=== PATIENT | male | born 1950 | race Caucasian/White ===

== ENCOUNTER 2020-06-22 10:48 | Outpatient (REF) | payer MEDICARE, OTHER, SELFPAY ==
[2020-06-22 13:28] LABS: Alanine Aminotransferase 30 U/L (0-40); Albumin Level 4.4 g/dL (3.5-5.0); Alkaline Phosphatase 42 U/L (39-117); Anion Gap 10 (12-20); Aspartate Amino Transferase 48 U/L (5-37); Bilirubin Total 0.7 mg/dL (0.0-1.0); Blood Urea Nitrogen 19 mg/dL (9-16); Calcium 9.6 mg/dL (8.4-10.2); Carbon Dioxide 31 mmol/L (22-29); Chloride 102 mmol/L (96-108); Cholesterol 188 mg/dL; Estimated Glomerular Filt Rate > 60; Glucose Fasting 84 mg/dL (60-99); HDL Cholesterol 51 mg/dL; LDL Cholesterol Calculated 86 mg/dl; Potassium 4.8 mmol/l (3.3-5.1); Sodium 138 mmol/L (135-145); Total Protein 7.3 g/dL (6.5-8.0); Triglycerides 257 mg/dL
== END 2020-06-22 10:49 | disposition home or self-care (01) ==
LOC: HO.MANLDS 10:48
PROVIDERS: PCP Physician Assistant; Visit Provider Physician Assistant
DX: E78.5 Hyperlipidemia, unspecified (principal)
CPT/HCPCS: 80053; 80061

== ENCOUNTER 2021-06-25 09:19 | Outpatient (REF) | payer MEDICARE, OTHER, SELFPAY ==
[2021-06-25 11:08] LABS: MANUAL DIFF FLAG NO
[2021-06-25 11:12] LABS: Basophils Percent Auto 0.5 % (0-2); Eosinophils Absolute Auto 0.2 X10*3/uL (0.0-0.4); Eosinophils Percent Auto 2.8 % (0-4); Hematocrit 41.1 % (42-52); Hemoglobin 13.5 g/dl (14.0-18.0); Imm Gran Abs Auto 0.01 X10*3/uL (0.00-0.03); Imm Gran Pct Auto 0.2 % (0.0-0.4); Lymphocytes Absolute Auto 1.7 X10*3/uL (1.2-4.9); Lymphocytes Percent Auto 29.8 % (20-40); Mean Corpuscular HGB Conc 32.8 g/dl (31.0-36.0); Mean Corpuscular Hemoglobin 28.7 pg (27.0-33.0); Mean Corpuscular Volume 87.3 fL (80-98); Monocytes Absolute Auto 0.5 X10*3/uL (0.1-1.2); Monocytes Percent Auto 8.8 % (2-11); Neutrophils Absolute Auto 3.4 X10*3/uL (2.0-8.3); Neutrophils Percent Auto 57.9 % (45-73); Platelet Count 279 X10*3/uL (160-400); Red Blood Count 4.71 X10*6/uL (4.60-5.80); Red Cell Distribution Width 13.5 % (11.0-16.0); White Blood Count 5.8 X10*3/uL (4.8-10.8)
[2021-06-25 11:36] LABS: Alanine Aminotransferase 19 U/L (0-40); Albumin Level 4.4 g/dL (3.5-5.0); Alkaline Phosphatase 43 U/L (39-117); Anion Gap 14 (12-20); Aspartate Amino Transferase 22 U/L (5-37); Bilirubin Total 0.5 mg/dL (0.0-1.0); Blood Urea Nitrogen 17 mg/dL (9-16); Calcium 9.4 mg/dL (8.4-10.2); Carbon Dioxide 28 mmol/L (22-29); Chloride 102 mmol/L (96-108); Cholesterol 185 mg/dL; Estimated Glomerular Filt Rate 59; Glucose Random 109 mg/dL (60-115); HDL Cholesterol 44 mg/dL; LDL Cholesterol Calculated 94 mg/dl; Potassium 4.5 mmol/L (3.3-5.1); Sodium 139 mmol/L (135-145); Total Protein 7.3 g/dL (6.5-8.0); Triglycerides 237 mg/dL
== END 2021-06-25 09:20 | disposition home or self-care (01) ==
LOC: HO.MANLDS 09:19
PROVIDERS: PCP Physician Assistant; Visit Provider Physician Assistant
DX: Z00.00 Encounter for general adult medical examination without abnormal findings (principal); Z13.6 Encounter for screening for cardiovascular disorders
CPT/HCPCS: 36415; 80053; 80061; 85025

== ENCOUNTER 2022-06-24 10:00 | Outpatient (REF) | payer MEDICARE, OTHER, SELFPAY ==
[2022-06-24 11:35] LABS: MANUAL DIFF FLAG NO
[2022-06-24 11:38] LABS: Basophils Percent Auto 0.7 % (0-2); Eosinophils Absolute Auto 0.1 X10*3/uL (0.0-0.4); Eosinophils Percent Auto 1.8 % (0-4); Hematocrit 41.9 % (42.0-52.0); Hemoglobin 13.7 g/dl (14.0-18.0); Imm Gran Abs Auto 0.01 X10*3/uL (0.00-0.03); Imm Gran Pct Auto 0.2 % (0.0-0.4); Lymphocytes Percent Auto 37.5 % (20-40); Mean Corpuscular HGB Conc 32.7 g/dl (31.0-36.0); Mean Corpuscular Hemoglobin 28.5 pg (27.0-33.0); Mean Corpuscular Volume 87.1 fL (80.0-98.0); Mean Platelet Volume 10.3 fL (9.4-12.4); Monocytes Absolute Auto 0.5 X10*3/uL (0.1-1.2); Monocytes Percent Auto 9.6 % (2-11); Neutrophils Absolute Auto 2.7 x10*3/uL (2.0-8.3); Neutrophils Percent Auto 50.2 % (45-73); Platelet Count 253 X10*3/uL (160-400); Red Blood Count 4.81 X10*6/uL (4.60-5.80); Red Cell Distribution Width 13.9 % (11.0-16.0); White Blood Count 5.4 X10*3/uL (4.8-10.8)
[2022-06-24 12:11] LABS: Alanine Aminotransferase 19 U/L (0-40); Albumin Level 4.4 g/dL (3.5-5.0); Alkaline Phosphatase 41 U/L (39-117); Anion Gap 16 (12-20); Aspartate Amino Transferase 20 U/L (5-37); Bilirubin Total 0.8 mg/dL (0.0-1.0); Blood Urea Nitrogen 17 mg/dL (9-16); Calcium 9.7 mg/dL (8.4-10.2); Carbon Dioxide 29 mmol/L (22-29); Chloride 98 mmol/L (96-108); Cholesterol 199 mg/dL; Estimated Glomerular Filt Rate > 60; Glucose Random 99 mg/dL (60-115); HDL Cholesterol 51 mg/dL; LDL Cholesterol Calculated 100 mg/dl; Potassium 4.8 mmol/L (3.3-5.1); Sodium 138 mmol/L (135-145); Total Protein 7.4 g/dL (6.5-8.0); Triglycerides 240 mg/dL
== END 2022-06-24 10:01 | disposition home or self-care (01) ==
LOC: HO.MANLDS 10:00
PROVIDERS: Visit Provider Physician Assistant
DX: Z00.00 Encounter for general adult medical examination without abnormal findings (principal); Z13.6 Encounter for screening for cardiovascular disorders
CPT/HCPCS: 36415; 80053; 80061; 85025

== ENCOUNTER 2024-12-20 10:22 | Outpatient (REF) | payer MEDICARE, OTHER, SELFPAY ==
--- OUTSIDE RECORDS SUMMARY | 2024-12-20 12:29 | XMS_ITS | Data Portability ---
Author Organization [facility] Address [address] [place] [address] Assessment Encounter Date Assessment Date Assessment LastModified by Organization Details LastModified Time 09/19/2022 09/19/2022 Patient agreed and verbally consents to this audio and video Telehealth appt via a secure platform [email or web address] Not available 09/19/2022 11:10:06 10/01/2022 10/01/2022 Patient agreed and verbally consents to this audio and video Telehealth appt via a secure platform [email or web address] Not available 10/01/2022 11:14:25 11/26/2022 11/26/2022 The patient denies recent falls or recurrent falls. Denies instability, weakness, abnormal gait, or difficulties with movement. The patient wears correct, supportive shoes and is not otherwise severely visually impaired. The patient is full weight bearing and if using the assistance of a cane or walker feels supported and stable with the use of such devices. All medical conditions have been taken into account that may pose a risk for the patient for falls. Home leon, carpets and/or rugs do not pose a challenge for the patient. The patient has been educated about the use of vitamin D supplementation for bone health and prevention of hypotensive episodes that may increase risk for fall. All question and concerns were answered to the patient's satisfaction. The patient denies little pleasure in activities they find enjoyable, feeling depressed, difficulties sleeping, feeling tired or having little energy, change in appetite, feeling guilty, overwhelmed or unmotivated. The patient denies suicidal ideation, thoughts of hurting themselves or others. Their mood is appropriate, they show good judgement and clear understanding of the conversation. They are orientated to time, place and person. They are not expressing any concerning thoughts or actions that would need further investigation and treatment for mental health. [email or web address] Not available 11/26/2022 10:41:27 Plan of Treatment Reminders Order Date Submit Date Provider Last Modified By Organization Details Last Modified Time Details Appointments ANNUAL EXAM 2024 10:00A M [facility] Not available Not available Not available Lab CBC w/ auto diff 2023 [facility], [address] [place] [address], [id number], 06/29/2024 10:47:35 CMP, serum or plasma 2023 [facility], [address] [place] [address], [id number], 06/29/2024 10:47:34 lipid panel, blood 2023 024 [facility], [address] [place] [address], [id number], 06/29/2024 10:47:34 PSA, serum or plasma 2023 024 [facility], [address] [place] [address], [place], [address], 06/29/2024 10:47:35 hemoglobi n A1c, QN, blood 2023 024 [facility], [address] [place] [address], [id number], 06/29/2024 10:47:34 Referral None recorded. Procedures None recorded. Surgeries None recorded. Imaging None recorded. Medication Orders lisinopri l 2.5 mg tablet 2022 023 [id number], [address] [place] [address], [id number], 11/26/2022 10:37:01 Cipro 500 mg tablet [address] [id number], [address] [place], [place], [id number], 11/26/2022 10:19:22 budesonid e 32 mcg/actua tion nasal spray [address] [facility]41149, [address] [place], [place], [id number], 04/17/2023 15:01:46 Medrol (Janes) 4 mg tablets in a dose pack 2022 023 [facility]35834, [address] [place], [place], [id number], 10/01/2022 11:11:10 amoxicill in 875 mg-potass ium clavulana te 125 mg tablet 2022 023 [facility] #30641, [address] [place], [place], [id number], 10/01/2022 11:11:05 Patient TargetsNo targets recorded. Patient InstructionsNo instructions recorded. Reason for Referral None Reported. Results Created Date Observation Date Name Description Value Unit Range Abnormal Flag Note LastModifiedBy Organization Detail LastModifiedTime 06/22/2006/19/2023 US, kendrick x, madeleine id arter y No observ ation record ed. [email or web address] [address], [address], 06/23/2023 15:06:29 Result Notes None recorded. Problems Name Problem SNOMED Code Status Onset Date Resolution Date Notes Provider Name and Address Organization Details Recorded Time Hyperlip idemia 28678307 Active 2018 Not Available [facility] 2 14:18:42 Right bundle branch block 63272992 Active 2018 Not Available [facility] 14:18:42 Ex-smoke r 1459554 Active 2018 Not Available [facility] 14:18:42 Impaired fasting glycemia 649201838 Completed 201809/20/2018 Edilma Aponte, UMESH, S [address] [place], [address], [facility] [place], [facility] 9 09:34:43 Sciatica 78316378 Active 2018 Not Available [facility] 2 14:18:42 Obesity 379713135 Active 2018 Not Available [facility] 2 14:18:42 Colonosc opy Active 2018 Document ed in paper Chart Patient refuses 7 Not Available [facility] 2 14:18:42 Psoriasi s 0568550 Active 2018 Not Available [facility] 2 14:18:42 Allergic rhinitis 91283776 Active 2018 Not Available [facility] 2 14:18:42 Hyperten sive disorder 73289556 Active 2018 Not Available [facility] 2 14:18:42 Body mass index 30+ - obesity 124267645 Active 2018 Not Available [facility] 2 14:18:42 Myalgia/ myositis - multiple 572038128 Active 2022 [facility] [address] [place], [address], [facility] [place] 3 10:01:40 Divertic ulitis 804513141 Active 2022 [facility] [address] [place], [address], [facility] [place] 3 10:33:02 Carotid bruit 285090060 Active 2022 [facility] [employer] [address] [place], [address], [facility] [place] 3 15:31:05 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 Procedures Surgical History Date Name Laterality Status Provider Name and Address Organization Details Recorded Time Testicular imaging w/flow completed December CÉSAR OsborneVILLA [address] [place], [address], [facility] [place] 12/19/2019 10:22:41 Imaging Results Imaging Date Name Status LastModified by Organiz ation Details LastModified Time 06/19/2023 US, duplex, carotid artery completed [email or web address] [place], [address], 06/23/2023 15:06:29 Procedure Notes None recorded. Medical Equipment None Reported. Allergies Allergen ID Allergen Name Allergen Category Reaction Reaction Severity Criticality Documentation Date Start Date Code Code System Note Provider Name and Address Organization Details Recorded Time 268 aspirin medicatio n anaphylax is severe Not available 09/17/20181989 1191 RxNorm [facility] [address] [place], [address], [facility] [place] 1 10:21:55 3551 tamsulosi n medicatio n other moderate Not available 06/28/20192004 65484 RxNorm Black out [facility] [address] [place], [address], [facility] [place] 1 10:22:20 6567 Cipro medicatio n nausea moderate Not available 11/26/202285162 3 RxNorm [facility] [address] [place], [address], [facility] [place] 3 10:26:51 7109 simvastat in medicatio n Not available Not available Not available 04/17/2023 42491 [facility] 15:01:34 7110 Medrol medicatio n Not available Not available Not available 04/17/2023 2 RxNorm catar act devel opmen t worse jarocho withi n one week [employer] [address] [place], [address] 3 15:14:05 Medications Name Sig Start Date Stop Date Status Note LastModified by Organization Details LastModified Time budesonide 32 mcg/actuati on nasal spray SHAKE LIQUID AND USE 1 SPRAY IN EACH NOSTRIL EVERY DAY FOR 7 DAYS 04/17 completed Not Available Not Available Not Available doxycycline hyclate 100 mg capsule Take 1 capsule twice a day by oral route for 10 days. 07/20 completed Not Available Not Available Not Available ofloxacin 0.3 % eye drops INSTILL 1 DROP INTO LEFT EYE FOUR TIMES DAILY STARTING THE DAY AFTER SURGERY AND CONTINUIN G 06/29 completed Not Available Not Available Not Available prednisone 20 mg tablet TAKE 1 TABLET BY MOUTH EVERY DAY FOR 7 DAYS 11/26 completed Not Available Not Available Not Available clobetasol 0.05 % topical cream APPLY A THIN LAYER TO THE AFFECTED AREA(S) BY TOPICAL ROUTE 2 TIMES PER DAY 06/21 completed Not Available Not Available Not Available Zyrtec 10 mg tablet Take 1 tablet every day by oral route. active Not Available Not Available No t Available ciprofloxac in 500 mg tablet TAKE 1 TABLET BY MOUTH EVERY 12 HOURS FOR 7 DAYS 11/26 completed Not Available Not Available Not Available simvastatin 40 mg tablet TAKE 1 TABLET BY MOUTH EVERY DAY active Not Available Not Available No t Available prednisolon e acetate 1 % eye drops,suspe nsion SHAKE LIQUID AND INSTILL 1 DROP IN LEFT EYE FOUR TIMES DAILY 06/29 completed Not Available Not Available Not Available tamsulosin 0.4 mg capsule Take 1 capsule every day by oral route. 11/23 completed Not Available Not Available Not Available tobramycin 0.3 % eye drops INSTILL 1 DROP TO SURGICAL EYE FOUR TIMES DAILY FOR 1 WEEK 04/17 completed Not Available Not Available Not Available methylpredn isolone 4 mg tablets in a dose pack FOLLOW PACKAGE DIRECTION S 10/01 completed Not Available Not Available Not Available timolol maleate 0.5 % eye drops INSTILL 1 DROP IN LEFT EYE TWICE DAILY 04/17 completed Not Available Not Available Not Available atropine 1 % eye drops 06/29 completed Not Available Not Available Not Available lisinopril 2.5 mg tablet TAKE 1 TABLET BY MOUTH DAILY active Not Available Not Available No t Available finasteride 5 mg tablet TK 1 T PO QD 02/06 completed Not Available Not Available Not Available amoxicillin 875 mg-potchanou m clavulanate 125 mg tablet TAKE 1 TABLET BY MOUTH EVERY 12 HOURS FOR 7 DAYS DIRECTED 10/01 completed Not Available Not Available Not Available Pneumovax-2 3 25 mcg/0.5 mL injection syringe 09/20 completed Not Available Not Available Not Available diflupredna te 0.05 % eye drops INSTILL 1 DROP INTO LEFT EYE 6 TIMES DAILY 06/29 completed Not Available Not Available Not Available Fluzone High-Dose 5908-4681 (PF) 180 mcg/0.5 mL intramuscul ar syringe 09/20 completed Not Available Not Available Not Available Fluzone High-Dose (PF) 180 mcg/0.5 mL intramuscul ar syringe 07/20 completed Not Available Not Available Not Available Fluad Quad (6 5yr up)(PF) 60 mcg (15 mcg x 4)/0.5mL IM syringe ADMINISTE R 0.5ML IN THE MUSCLE DIRECTED 01/30 completed Not Available Not Available Not Available BinaxNOW COVID-19 Ag Self Test kit TEST DIRECTED TODAY 06/29 completed Not Available Not Available Not Available Vitals Date Recorded Body height Heart rate Oxygen saturation Oxygen saturation in Arterial blood by Pulse oximetry Body mass index (BMI) Body weight Systolic blood pressure Diastolic blood pressure Provider Name and Address Organization Details Last Updated DateTime 3 175.9 cm 78 /min 99 % 99 % 28.9 kg/m2 70752.7 g 110 mm[Hg] 60 mm[Hg] Natty Alexander [facility] 3 10:14:20 Date Recorded Body height Body mass index (BMI) Body weight Heart rate Oxygen saturation Oxygen saturation in Arterial blood by Pulse oximetry Systolic blood pressure Diastolic blood pressure Provider Name and Address Organization Details Last Updated DateTime 3 175.9 cm 28.9 kg/m2 21690.7 g 83 /min 97 % 97 % 128 mm[Hg] 78 mm[Hg] Natty Alexander [facility] 3 15:03:03 Date Recorded Body weight Oxygen saturation Oxygen saturation in Arterial blood by Pulse oximetry Heart rate Systolic blood pressure Diastolic blood pressure Provider Name and Address Organization Details Last Updated DateTime 4 60511.0 2 g 98 % 98 % 75 /min 116 mm[Hg] 70 mm[Hg] Christine Chau [facility] 4 10:30:46 Social History Question Answer Notes LastModified by Organizat ion Details LastModified Time Tobacco Smoking Status Former Smoker Edilma Aponte NP, S [address] [place], [address], [facility] [place] 09/20/2018 09:30:45 What Was The Date Of Your Most Recent Tobacco Screening? 06/29/2024 [email or web address] Information not available 06/29/2024 How Many Years Have You Smoked Tobacco? 15 [email or web address] Information not available 09/20/2018 Do You Or Have You Ever Used Any Other Forms Of Tobacco Or Nicotine? No [email or web address] Information not available 04/17/2023 Sex: Unknown Functional Status None recorded. Mental Status None recorded. Family History Relationship Description Onset Age of this Age Resolved Age Notes LastModified by Organization Details LastModified Time Brother Diabetes mellitus [email or web address] Not available 2018 09:31:59 Brother Sick sinus syndrome [email or web address] Not available 10:20:03 Father Chronic obstructive pulmonary disease 81 [email or web address] Not available 2018 09:32:48 Father Heart failure [email or web address] Not available 10:20:03 Mother Malignant tumor of lung 51 [email or web address] Not available 10:20:03 Medical History Condition Response Allergies/Hayfever Y High Cholesterol Y Immunizations Vaccine Type Date Status Note Provider Nam e and Address Organization Details Recorded Time Influenza, split virus, quadrivalent, preservative 2 completed Lucía Gencarellgordon golden [facility] 04/17/2023 14:56:10 COVID-19, mRNA, LNP-S, PF, 30 mcg/0.3 mL dose 1 completed Lucía Gencarelle null, [facility] 04/17/2023 14:56:11 COVID-19, mRNA, LNP-S, PF, 30 mcg/0.3 mL dose [address] [facility], [facility] 04/17/2023 14:56:11 influenza nasal, unspecified formulation [address] [facility], [facility] 04/17/2023 14:56:11 zoster live 3 completed Herminia Ortiz null, [facility] 06/21/2019 10:43:09 Pneumococcal conjugate PCV 13 7 completed Lucía Gencarelle [facility] 04/17/2023 14:56:11 Td(adult) unspecified formulation 4 completed Lucía Gencarelle [facility] 04/17/2023 14:56:11 Influenza, split virus, quadrivalent, preservative 9 completed Lucía Gencarelle null, [facility] 04/17/2023 14:56:10 Influenza, split virus, quadrivalent, preservative 0 completed Lucía Gencarelle null, [facility] 04/17/2023 14:56:10 pneumococcal polysaccharide PPV23 [address] [facility], [facility] 04/17/2023 14:56:11 COVID-19 vaccine, vector-nr, rS-ChAdOx1, PF, 0.5 mL 1 completed Lucía Gencarelle null, [facility] 04/17/2023 14:56:11 COVID-19 vaccine, vector-nr, rS-ChAdOx1, PF, 0.5 mL [address] [facility], [facility] 04/17/2023 14:56:11 Past Encounters Encounter ID Performer Location Encounter Start Date Encounter Closed Date Diagnosis/Indication Diagnosis SNOMED-CT Code Diagnosis ICD10 Code Diagnosis Note [id number] Edilma Aponte NP, S [facility] [address] [facility] [place] [address] 09/20/2018 10:15:46 09/20/2018 13:42:44 Adult health examination 771092915 Z00.01 Active or passive immunization 613906441 Z23 Up to date Psoriasis 0311542 L40.9 Hyperlipidemia 97048800 E78.2 Allergic rhinitis 521587 04 J30.9 Benign pro static hyperplasia 066353946 N40.1 On examina tion - initial high BP 650601517 R03.0 recheck in office in 2 months [id number] Edilma Aponte NP, S [facility] [address] [facility], [place] [address] 11/23/2018 15:20:58 11/23/2018 16:28:53 Hypertensive disorder 12801718 I10 discussed pot. S/E's Hyperlipidemia 84341128 E78.2 Obesity 549511813 E66.9 [id number] Edilma Aponte NP, S [facility] [address] [facility] [place] [place] [address] 12/28/2018 09:52:55 12/28/2018 10:19:29 Hypertensive disorder 65602947 I10 controlled Hyperlipidemia 30542390 E78.2 follow [id number] December [facility] [address] [facility] [facility] [place] [place] [address] 06/21/2019 10:40:51 06/21/2019 13:29:01 Tick bite without infection 470477236 T14.8XXA very mild erythemato us rash surroundin g deer tick will prophylact icially treat [id number] December [facility] [address] [facility] [facility] [place] [place] [address] 06/28/2019 11:40:50 06/28/2019 13:35:31 Hypertensive disorder 22255569 I10 well controlled Hyperlipidemia 09977306 E78.5 normal in september Allergic rhinitis 213792 04 J30.9 Body mass index 30+ - obesity 494027491 Z68.31 Screening for malignant neoplasm of colon 347577297 Z12.11 refuses colonoscop y advised of other options ultimately doesnt feel he would treat colon cancer even if it was found early will f/u if he changes his mine Advance care planning 71 6442822 Z71.89 - kathy silva [id number] has paperwork at home Tobacco de pendence syndrome 73917617 F17.200 quit smoking again 2010 smoked for a total of 15-20 years discussed AAA screening at length - refusing at this time, will think about it and get back to us Screening for malignant neoplasm of prostate 307590022 Z12.5 [id number] December BRYAN Osborne [facility] [address] [facility] [address] 12/19/2019 09:55:37 12/19/2019 10:42:02 Adult health examination 364719164 Z00.00 labs done 12/14/2019 and reviewed HCP - Kathy Silva Screening for malignant neoplasm of colon 525727393 Z12.11 refuses colonoscop y advised of other options ultimately doesnt feel he would treat colon cancer even if it was found early will f/u if he changes his mine Hypertensive disorder 38 380752 I10 STABLE Ex-smoker 7946807 Z87.89 1 refuses discussed risks/cons equences of not screening - pt is aware and refuses testing Hyperlipidemia 52716980 E78.5 elevated trigs slightly elevated blood sugar labs weren't fasting REPEAT 6 MOS [id number] [facility] [facility] [address] [facility] [address] 06/26/2020 10:02:59 06/26/2020 15:32:25 Hypertensive disorder 70685866 I10 BP is excellent today doing well will continue to monitor Benign pro static hyperplasia 235687571 N40.1 will do a trial of finasterid e and see if patient can tolerate the medication [id number] [employer] [facility] [address] [facility],[place] [address] 02/06/2021 10:12:39 02/06/2021 10:49:08 Adult health examination 754370640 Z00.00 BP fine today needs recheck BW Screening for cardiovascular system disease 353752138 Z13.6 stable, will recheck cholestero l Screening for malignant neoplasm of colon 408279988 Z12.11 the patient refuse colonoscop y and cologuard at this time [id number] [employer] [facility] [address] [facility] [address] [place] [address] 01/24/2022 10:27:15 01/24/2022 11:07:02 Adult health examination 170829097 Z00.00 BP fine today needs recheck BW Screening for cardiovascular system disease 514548886 Z13.6 stable, will recheck cholestero l Screening for malignant neoplasm of colon 626016852 Z12.11 the patient refuses colonoscop y and cologuard at this time [id number] [employer] [facility] [address] [facility] [address] [place] [address] 09/19/2022 09:08:30 09/19/2022 11:42:10 Acute maxillary sinusitis 76483897 J01.01 will start on medrol and augmentin for treatmentw ill continue APAP and ibuwill continue the netti pot [id number] [employer] [facility] [address] [facility] [address] [place] [address] 10/01/2022 09:23:31 10/01/2022 11:47:15 Acute sinusitis 19188798 J01.01 will start on cipro and budesonide finished augmentin and medrol with no effectswit treatment coursecall with update tomorrow morning [id number] [employer] [facility] [address] [facility] [address] [place] [address] 11/26/2022 10:04:43 11/26/2022 11:38:43 Hyperlipidemia 06979364 E78.2 stable on recheckcon tinue off the statin Diverticulitis 552476417 K57.32 stable right nowknows his triggers Hypertensive disorder 38 020956 I10 BP is excellent today doing well will continue to monitor [id number] [employer] [facility] [address] [facility] [address] [place] [address] 04/17/2023 14:55:59 04/20/2023 09:52:52 Pre-surgery evaluation 411461207 Z01.818 The patient was seen in the office today for pre-op evaluation . All medical conditions on patient's problem list were addressed and are currently stable, no interventi on needed at this time. Based on history and physical performed, the patient is cleared for surgery. AMENDMENT: cleared for upcoming retinol surgery (06/01/23) with dr. correa [id number] [employer] [facility] [address] [facility],[place] [address] 06/29/2024 10:19:48 06/29/2024 10:54:33 Active or passive immunization 269118647 Z23 Adult heal th examination 326698004 Z00.00 BP fine today needs recheck BW Depression screening 171 482911 Z13.31 SCREENING NEGATIVE Blind left eye 628032320 H54.42A3 Health Concerns Section Related Observation LastModified by Organization Detai ls LastModified Time None Recorded Concern Status LastModified by Organization Details LastModified Time None Recorded Advance Directives Directive None Recorded Payers Encounter Date Sequence Insurance Name Policy Number Policy Mares Covered Member ID Mares Member ID Guarantor Name 09/19/2022 2 WPS - FOR LIFE (SECONDARY TO MEDICARE) Jose Rogelio Silva [id number] Ojse Rogelio Ovitt 09/19/2022 1 [place] [employer] Jose Rogelio Silva [id number] Jose W Ovitt 10/01/2022 2 [employer]PS - FOR LIFE (SECONDARY TO MEDICARE) Jose Rogelio Zapataitt [id number] Jose Rogelio Ovitt 10/01/2022 1 [place] [employer] Jose Zapataitt [id number] Jose Mercado Ovitt 11/26/2022 2 [employer]PS - FOR LIFE (SECONDARY TO MEDICARE) Jose Zapataitt [id number] Jose Rogelio Ovitt 11/26/2022 1 [place] [employer] Jose Rogelio Zapataitt [id number] Jose Rogelio Ovitt 04/17/2023 2 [employer]PS - FOR LIFE (SECONDARY TO MEDICARE) Jose Zapataitt [id number] Jose Mercado Ovitt 04/17/2023 1 [place] [employer] Jose Silva [id number] Jose Silva 06/29/2024 2 [employer]PS - FOR LIFE (SECONDARY TO MEDICARE) Jose Silva [id number] Jose Silva 06/29/2024 1 [place] [facility] Jose Silva [id number] Jose Silva Notes Date Note Type Note Provider Name a nd Address Organization Details Recorded Time 3 text/html c/o sinus pain tele-med phone callpatient consents to phone call patient reports for the past week he developed sinus pain and pressure, was improving, but thinks he got either the flu or another infection which worsened his sinus pressure and pain the patient reports that he also had fever/chillsthe patient still has teeth pain, sinus pain, and sinus pressure the patient did try APAP and ibu OTCavoided sprays due label on the back warning about BP and prostate issuestold him he can try flonase with it but medrol should work fine by itself [facility] [address] [place], [id number], [facility], [place], operated by [facility] 09/19/2022 11:13:18 3 text/html c/o tele-med phone call the patient is still having symptoms from the sinus infectionstill has sinus infection, change in taste, and sinus pain/congestion no effect with augmentin or medrol may need to adjust to more potent abx and steriod spray combo insteadwill update me about progress tomorrow [facility] [address] [place], [id number], [facility], [place], operated by [facility] 10/01/2022 11:16:59 3 text/html f/u the patient's sinus infection improved significantly, but the cipro made him really sick agreed to put on his allergy list; will not give it to him again (documented in chart) did lose weight on the medication but stable right now no issues did finish the prednisone which helped but may have cause a mild vision changehas f/u with eye doctorno floaters, no blurred vision the patient reports that [place] liquids from 24 hours and it worked well HTN: today in the office the patient BP is 110/60 R arm sittingthe patient is doing well on the BP medication with no side effects and no adjustment of their medications needed today at the appointmentjeannette valerioclaire on medicationdenies chest pain, sob, ankle swelling, orthopnea, palpitations the patient is otherwise doing really today with no other concerns at this time sleeping okay and eating okaydoing really well today [facility] [address] [place], [id number], [facility], [place], operated by [facility] 11/26/2022 10:42:25 3 text/html Pre-OpReported bypatient.Surgery to be Performed:Retina Surgery on 06/01/[address] Correa Severity:severe Risk Factorsno cognitive impairment; no functional impairment; no malnutrition; no frailty; able to climb a flight of stairs (exercise capacity>4 METS); no obstructive sleep apnea; non-smoker; no alcohol misuse; no illicit drug use; no chronic cardiopulmonary condition; not obese Anesthesia hx:no hx of anesthesia complications; no allergy to anesthetic agents; no family history of anesthesia complications Functional Ability:able to walk up stairs; able to perform heavy work around the house; no difficulty walking up hills; able to walk 4 mph Post-Op Support:adequate assistance at home () [facility] [address] [place], [id number], [facility], [place], operated by [facility] 05/27/2023 12:16:34 4 text/html Annual WellnessReported bypatient.Diet and Nutrition:healthy diet; discussed vitamin and supplement use; discussed portion control; discussed maintaining calcium balance; discussed diet improvement Fracture Risk:no history of fractures; no recent explained fracture; no sudden unexplained fractures; no previous musculoskeletal injuries Physical Activity:exercises on a regular basis; recent increase in physical activity; good physical condition Additional Lifestyle Factors:no tobacco use; no alcohol intake; stopped drinking alcohol Depression Risk:never feels sad, empty, or tearful; no loss of interest in activities; no significant changes in weight; no sleep disturbances or insomnia; no agitation; no loss of energy; no feelings of worthlessness or guilt; no thoughts of suicide; no history of depression; no history of mood disorders Hearing:no loss of hearing Vision:total vision loss(Left eye)Notes:sees dentist twice per year the patient ended up having laser surgery for his eye, for his cataract surgery, developed retina injury from the surgery now seeing [facility], too much damage to correct, 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
[2024-12-20 13:04] LABS: MANUAL DIFF FLAG NO
[2024-12-20 13:14] LABS: Basophils Percent Auto 0.7 % (0-2); Eosinophils Absolute Auto 0.1 X10*3/uL (0.0-0.4); Eosinophils Percent Auto 1.8 % (0-4); Hematocrit 42.2 % (42.0-52.0); Hemoglobin 13.6 g/dl (14.0-18.0); Imm Gran Abs Auto 0.01 X10*3/uL (0.00-0.03); Imm Gran Pct Auto 0.2 % (0.0-0.4); Lymphocytes Percent Auto 44.7 % (20-40); Mean Corpuscular HGB Conc 32.2 g/dl (31.0-36.0); Mean Corpuscular Hemoglobin 27.9 pg (27.0-33.0); Mean Corpuscular Volume 86.7 fL (80.0-98.0); Mean Platelet Volume 9.8 fL (9.4-12.4); Monocytes Absolute Auto 0.5 X10*3/uL (0.1-1.2); Monocytes Percent Auto 10.8 % (2-11); Neutrophils Absolute Auto 1.9 x10*3/uL (2.0-8.3); Neutrophils Percent Auto 41.8 % (45-73); Platelet Count 284 X10*3/uL (160-400); Red Blood Count 4.87 X10*6/uL (4.60-5.80); Red Cell Distribution Width 13.7 % (11.0-16.0); White Blood Count 4.5 X10*3/uL (4.8-10.8)
[2024-12-20 13:41] LABS: Estimated Average Glucose 111 mg/dL; Hemoglobin A1C 134.4259 umol/L; Hemoglobin A1c % 5.5 % (<6.0); Total Hemoglobin (HGBA1C) 3619.8373 umol/L
[2024-12-20 14:05] LABS: Prostate Specific Antigen 1.23 ng/mL (<0.05-4.0)
[2024-12-20 14:24] LABS: Anion Gap 11 (12-20)
[2024-12-20 14:28] LABS: Alanine Aminotransferase 19 U/L (0-40); Aspartate Amino Transferase 35 U/L (5-37); Bilirubin Total 0.5 mg/dL (0.0-1.0); Blood Urea Nitrogen 20 mg/dL (9-16); Calcium 9.4 mg/dL (8.4-10.2); Carbon Dioxide 27 mmol/L (22-29); Chloride 102 mmol/L (96-108); Cholesterol 256 mg/dL (<200); Estimated Glomerular Filt Rate > 60; Glucose Random 88 mg/dL (60-115); HDL Cholesterol 49 mg/dL (>40); LDL Cholesterol Calculated 150 mg/dL (<100); Potassium 4.2 mmol/L (3.3-5.1); Sodium 136 mmol/L (135-145); Total Protein 7.1 g/dL (6.5-8.0); Triglycerides 288 mg/dL (<150)
[2024-12-20 17:32] LABS: Alkaline Phosphatase 46 U/L (39-117)
== END 2024-12-20 10:23 | disposition home or self-care (01) ==
LOC: HO.MANLDS 10:22
PROVIDERS: Visit Provider Physician Assistant
DX: Z00.00 Encounter for general adult medical examination without abnormal findings (principal); Z12.5 Encounter for screening for malignant neoplasm of prostate; Z13.6 Encounter for screening for cardiovascular disorders; Z13.1 Encounter for screening for diabetes mellitus
CPT/HCPCS: 36415; 80053; 80061; 83036; 84153; 85025